=== PATIENT | male | born 1995 | race Caucasian/White ===

== ENCOUNTER 2018-06-06 19:44 | Emergency (ER) | payer BC ==
[~2018-06-06] VITALS: Ht 188 cm; Wt 86.4 kg
[2018-06-06 20:06] VITALS: BP 146/86; TEMP 98.6
[2018-06-07 00:08] VITALS: PULSE 59
[2018-06-07] MEDS ORDERED: TYLENOL 325MG325 MG (15:09)
[2018-06-07] MEDS ORDERED: PREDNISONE20 MG PO ×2 (15:50→15:58)
[2018-06-07] MEDS ORDERED: NORCO 325 MG-51 TAB PO (15:50)
[2018-06-07] MEDS ORDERED: AMOXICILLIN 8751 TAB PO ×2 (15:50→15:58)
== END 2018-06-07 00:08 | disposition home or self-care (01) ==
LOC: COL.ER 19:44
DX: S02.82XA Fracture of other specified skull and facial bones, left side, initial encounter for closed fracture (principal); W50.0XXA Accidental hit or strike by another person, initial encounter; Y93.67 Activity, basketball

== ENCOUNTER 2018-06-07 14:21 | Emergency (ER) | payer BC ==
[~2018-06-07] VITALS: Ht 188 cm; Wt 86.4 kg
[2018-06-07 14:35] VITALS: BP 135/75; PULSE 54; TEMP 98
[2018-06-07] MEDS ORDERED: TYLENOL 325MG325 MG (15:09)
[2018-06-07] MEDS ORDERED: AMOXICILLIN 8751 TAB PO ×2 (15:50→15:58)
[2018-06-07] MEDS ORDERED: PREDNISONE20 MG PO ×2 (15:50→15:58)
[2018-06-07] MEDS ORDERED: NORCO 325 MG-51 TAB PO (15:50)
== END 2018-06-07 16:06 | disposition home or self-care (01) ==
LOC: COL.ER 14:21
DX: S02.32XA Fracture of orbital floor, left side, initial encounter for closed fracture (principal); W50.0XXA Accidental hit or strike by another person, initial encounter; Y92.219 Unspecified school as the place of occurrence of the external cause; Y93.67 Activity, basketball
CPT/HCPCS: J7512

== ENCOUNTER 2018-08-07 17:29 | Emergency (ER) | payer BC ==
[~2018-08-07] VITALS: Ht 188 cm; Wt 87.2 kg
[~2018-08-07 17:29] MED LIST: AMOXICILLIN 8751 TAB PO; NORCO 325 MG-51 TAB PO; PREDNISONE20 MG PO; TYLENOL 325MG325 MG
[2018-08-07 17:47] VITALS: BP 127/72; TEMP 97.1
[2018-08-07 19:56] VITALS: PULSE 62
== END 2018-08-07 19:59 | disposition home or self-care (01) ==
LOC: COL.ER 17:29
DX: H59.312 Postprocedural hemorrhage of left eye and adnexa following an ophthalmic procedure (principal)

== ENCOUNTER 2023-03-20 19:27 | Emergency (ER) | payer BC ==
[~2023-03-20] VITALS: Ht 188 cm; Wt 84.1 kg
[2023-03-20 19:32] VITALS: BP 136/67; TEMP 97.9
[2023-03-20 20:02] VITALS: PULSE 72
== END 2023-03-20 20:04 | disposition home or self-care (01) ==
LOC: COL.ER 19:27
DX: S01.21XA Laceration without foreign body of nose, initial encounter (principal); W50.0XXA Accidental hit or strike by another person, initial encounter; Y93.67 Activity, basketball; Y92.310 Basketball court as the place of occurrence of the external cause